=== PATIENT | male | born 1940 | race Caucasian/White ===

== ENCOUNTER 2020-10-17 16:55 | Emergency (ER) | payer OTHER ==
[2020-10-17 18:06] LABS: NRBC 0
[2020-10-17 18:11] LABS: PROTHROMBIN TIME 12.5 SECONDS (11.4-13.6); PTT 28.1 SECONDS (22.2-34.7)
[2020-10-17 18:12] LABS: MCV 92.3 fL (78.0-100.0); RBC 4.66 M/uL (4.70-6.00)
[2020-10-17 18:13] LABS: MCHC 32.6 g/dL (32.0-36.0); MPV 12.7 fL (6.0-9.5); NEUTROPHIL 69.6 % (41-80); PLT 118 K/uL (150-400); RDW 12.2 % (11.5-14.0)
[2020-10-17 18:14] LABS: BASOPHIL 0.8 % (0-2); LYMPHOCYTE 20.6 % (15-48); MONOCYTE 6.7 % (0-12)
[2020-10-17 18:28] LABS: ALBUMIN 3.6 g/dL (3.4-5.0); BILIRUBIN - TOTAL 0.5 mg/dL (0.2-1.0); BUN/CREAT RATIO (CALC) 18.6 RATIO; CREATININE 1.18 mg/dL (0.67-1.17); POTASSIUM 3.4 mmol/L (3.5-5.1); TOTAL PROTEIN 6.6 g/dL (6.4-8.2)
== END 2020-10-17 21:37 | disposition home or self-care (01) ==
LOC: FER 16:55
PROVIDERS: Nurse Practitioner Family
DX: R07.89 Other chest pain (principal); M25.512 Pain in left shoulder; R05 Cough; R42 Dizziness and giddiness; I10 Essential (primary) hypertension; Z95.5 Presence of coronary angioplasty implant and graft; Z20.822 Contact with and (suspected) exposure to COVID-19
CPT/HCPCS: 36415; 71045; 71275; 80053; 84484; 85025; 85379; 85610; 85730; 93005; J7030; Q9967; U0002